=== PATIENT | female | born 1940 | race Caucasian/White ===

== ENCOUNTER 2017-12-08 09:32 | Day surgery (SDC) | payer MEDICARE, OTHER ==
[~2017-12-08] VITALS: Ht 167.6 cm; Wt 64.3 kg
[2017-12-08] MEDS ORDERED: GABA300 PO (10:08)
[2017-12-08] MEDS ORDERED: ATEN50 PO (10:08)
[2017-12-08] MEDS ORDERED: TRAZ50 PO (10:10)
[2017-12-08] MEDS ORDERED: Crestor40 MG PO (10:10)
== END 2017-12-08 12:10 | disposition home or self-care (01) ==
LOC: ORSCSDS 09:32
PROVIDERS: Student in an Organized Health Care Education/Training Program
PROC: 0DB58ZX Excision of Esophagus, Via Natural or Artificial Opening Endoscopic, Diagnostic (ICD-10-PCS; principal; 2017-12-08 10:45)
PROC: 0D758ZZ Dilation of Esophagus, Via Natural or Artificial Opening Endoscopic (ICD-10-PCS; principal; 2017-12-08 10:45)
DX: R13.10 Dysphagia, unspecified (principal); K22.2 Esophageal obstruction; I10 Essential (primary) hypertension; E03.9 Hypothyroidism, unspecified; Z87.891 Personal history of nicotine dependence; K44.9 Diaphragmatic hernia without obstruction or gangrene; Z79.899 Other long term (current) drug therapy
CPT/HCPCS: C1726

== ENCOUNTER → 2019-02-03 | Outpatient (CLI) | payer MEDICARE, OTHER ==
[~2019-02-03] MED LIST: ACET500 PO; ATEN50 PO; Crestor40 MG PO; FAMO20 PO; GABA300 PO; LEVSOD75 PO; OMEPPI 40 MG-11 EACH PO; TRAZ50 PO
[2019-02-06 06:19] LABS: Stool Occult Bld Immuno 1 Negative (NEGATIVE)
== END | disposition home or self-care (01) ==
LOC: LAB SHORT 13:00 → LAB 13:00
PROVIDERS: Family Medicine
DX: Z12.11 Encounter for screening for malignant neoplasm of colon (principal)
CPT/HCPCS: G0328

== ENCOUNTER → 2020-09-29 | Outpatient (CLI) | payer MEDICARE, OTHER ==
[2020-09-29 18:08] LABS: BASOPHILS ABSOLUTE AUTO 0.06 K/mm3 (0.00-0.23); BASOPHILS PERCENT AUTO 1 % (0-2); EOSINOPHILS PERCENT AUTO 1 % (0-6); Hematocrit 34.8 % (33.0-51.0); Hemoglobin 11.2 g/dL (11.5-16.0); IMMATURE GRAN ABSOLUTE AUTO 0.03 K/mm3 (0.00-0.10); IMMATURE GRAN PERCENT AUTO 0 % (0-1); LYMPHOCYTES ABSOLUTE AUTO 0.49 K/mm3 (0.84-5.20); LYMPHOCYTES PERCENT AUTO 6 % (21-46); MONOCYTES ABSOLUTE AUTO 0.63 K/mm3 (0.16-1.47); MONOCYTES PERCENT AUTO 7 % (4-13); Mean Corpuscular HGB 30.8 pg (26.0-34.0); Mean Corpuscular HGB Conc 32.2 g/dL (31.5-36.5); Mean Corpuscular Volume 96 fL (80-100); Mean Platelet Volume 10.6 fL (9.1-12.4); NEUTROPHILS ABSOLUTE AUTO 7.23 K/mm3 (1.96-9.15); NEUTROPHILS PERCENT AUTO 85 % (41-73); Platelet Count 197 K/mm3 (150-400); RDW Coefficient Variation 13.5 % (11.7-14.2); RDW Standard Deviation 47.7 fL (35.1-46.3); Red Blood Cell Count 3.64 M/mm3 (3.80-5.20); White Blood Cell Count 8.54 K/mm3 (4.00-11.30)
[2020-09-29 18:20] LABS: Albumin, Blood 3.6 g/dL (3.4-5.0); Albumin/Globulin Ratio 0.9 (0.8-1.8); Bilirubin, Total 0.4 mg/dL (0.1-1.0); Bun/Creatinine Ratio 16.6 (12.0-20.0); Calcium, Blood 9.4 mg/dL (8.5-10.1); Creatinine, Blood 1.45 mg/dL (0.40-1.00); Globulin, Blood 4.2 g/dL (2.2-4.0); Potassium, Blood 4.5 mmol/L (3.5-5.5); Total Protein, Blood 7.8 g/dL (6.4-8.2)
== END | disposition home or self-care (01) ==
LOC: LAB SHORT 18:04 → LAB 18:04
PROVIDERS: Chiropractor
DX: R50.9 Fever, unspecified (principal); R30.9 Painful micturition, unspecified
CPT/HCPCS: 80053; 85025; 87077; 87086; 87186

== ENCOUNTER → 2020-09-30 | Outpatient (CLI) | payer MEDICARE, OTHER ==
[2020-09-30 11:25] LABS: Bun/Creatinine Ratio 17.2 (12.0-20.0); Calcium, Blood 9.1 mg/dL (8.5-10.1); Creatinine, Blood 1.28 mg/dL (0.40-1.00); Potassium, Blood 4.3 mmol/L (3.5-5.5)
== END | disposition home or self-care (01) ==
LOC: LAB SHORT 11:15 → LAB 11:15
PROVIDERS: Chiropractor
DX: N39.0 Urinary tract infection, site not specified (principal); R30.9 Painful micturition, unspecified
CPT/HCPCS: 80048

== ENCOUNTER → 2020-10-07 | Outpatient (CLI) | payer MEDICARE, OTHER | END | disposition home or self-care (01) | LOC: LAB SHORT 09:40 → LAB 09:40 | DX: N12 Tubulo-interstitial nephritis, not specified as acute or chronic (principal) | CPT/HCPCS: 87086 ==

== ENCOUNTER 2021-05-26 23:51 | Emergency (ER) | payer OTHER ==
[~2021-05-26] VITALS: Ht 170.2 cm; Wt 59.0 kg
[2021-05-27 00:15] LABS: BASOPHILS ABSOLUTE AUTO 0.03 K/mm3 (0.00-0.23); BASOPHILS PERCENT AUTO 0 % (0-2); EOSINOPHILS ABSOLUTE AUTO 0.07 K/mm3 (0.00-0.68); EOSINOPHILS PERCENT AUTO 1 % (0-6); Hematocrit 34.6 % (33.0-51.0); Hemoglobin 11.2 g/dL (11.5-16.0); IMMATURE GRAN ABSOLUTE AUTO 0.04 K/mm3 (0.00-0.10); IMMATURE GRAN PERCENT AUTO 0 % (0-1); LYMPHOCYTES ABSOLUTE AUTO 1.14 K/mm3 (0.84-5.20); LYMPHOCYTES PERCENT AUTO 12 % (21-46); MONOCYTES ABSOLUTE AUTO 1.23 K/mm3 (0.16-1.47); MONOCYTES PERCENT AUTO 13 % (4-13); Mean Corpuscular HGB 30.4 pg (26.0-34.0); Mean Corpuscular HGB Conc 32.4 g/dL (31.5-36.5); Mean Corpuscular Volume 94 fL (80-100); Mean Platelet Volume 10.3 fL (9.1-12.4); NEUTROPHILS ABSOLUTE AUTO 7.12 K/mm3 (1.96-9.15); NEUTROPHILS PERCENT AUTO 74 % (41-73); Platelet Count 215 K/mm3 (150-400); RDW Coefficient Variation 13.7 % (11.7-14.2); RDW Standard Deviation 46.7 fL (35.1-46.3); Red Blood Cell Count 3.69 M/mm3 (3.80-5.20); White Blood Cell Count 9.63 K/mm3 (4.00-11.30)
[2021-05-27 00:20] LABS: Bilirubin, Urine Neg (Neg); Blood, Urine 2+ (Neg); Glucose Qualitative, Urine Neg (Neg); Ketones, Urine Neg (Neg); Leukocyte Esterase, Urine 3+ (Neg); Nitrite, Urine Pos (Neg); Protein, Urine 2+ (Neg); Source, Urine Straight Cath; Urobilinogen, Urine NORM (Normal)
[2021-05-27 00:27] LABS: Appearance, Urine Hazy (Clear); Color, Urine Yellow (P-Yellow)
[2021-05-27 00:28] LABS: Bacteria Many /hpf; Squamous Epithelial Cells Not Seen /hpf (Few); White Blood Cells, Urine TNTC /hpf (0-5)
[2021-05-27 00:32] LABS: Albumin, Blood 3.4 g/dL (3.4-5.0); Albumin/Globulin Ratio 0.8 (0.8-1.8); Bilirubin, Total 0.3 mg/dL (0.1-1.0); Bun/Creatinine Ratio 12.8 (12.0-20.0); Creatinine, Blood 1.33 mg/dL (0.40-1.00); Total Protein, Blood 7.4 g/dL (6.4-8.2)
== END 2021-05-27 04:31 | disposition home or self-care (01) ==
LOC: ER 23:51
PROVIDERS: Emergency Medicine
DX: N39.0 Urinary tract infection, site not specified (principal); Z85.818 Personal history of malignant neoplasm of other sites of lip, oral cavity, and pharynx; Z79.899 Other long term (current) drug therapy; Z88.5 Allergy status to narcotic agent; Z88.8 Allergy status to other drugs, medicaments and biological substances; Z91.040 Latex allergy status; Z91.011 Allergy to milk products
CPT/HCPCS: 36415; 80053; 81001; 83605; 85025; 87040; 87077; 87086; 87186; 99283; J0696; J7030; P9612

== ENCOUNTER 2023-10-01 06:33 | Emergency (ER) | payer OTHER ==
[~2023-10-01] VITALS: Ht 170.2 cm; Wt 65.8 kg
[2023-10-01] MEDS ORDERED: CELEXA10 MG PO (06:57)
[2023-10-01] MEDS ORDERED: ROSUVASTATIN CA20 MG PO (06:57)
[2023-10-01] MEDS ORDERED: EUTHYROX50 MC1 PO (06:58)
[2023-10-01] MEDS ORDERED: Ketorolac Tromethamine 30mg Vial IM ONE (07:00)
[2023-10-01 08:47] VITALS: BP 160/86
== END 2023-10-01 08:48 | disposition home or self-care (01) ==
LOC: ER 06:33
DX: S43.401A Unspecified sprain of right shoulder joint, initial encounter (principal); X50.0XXA Overexertion from strenuous movement or load, initial encounter; Y92.007 Garden or yard of unspecified non-institutional (private) residence as the place of occurrence of the external cause; Z79.899 Other long term (current) drug therapy; Z88.5 Allergy status to narcotic agent; Z91.040 Latex allergy status; Z88.8 Allergy status to other drugs, medicaments and biological substances
CPT/HCPCS: 73030; 96372; 99283-25; J1885

== ENCOUNTER 2024-05-12 09:31 | Emergency (ER) | payer OTHER ==
[~2024-05-12] VITALS: Ht 167.6 cm; Wt 63.5 kg
[~2024-05-12 09:31] MED LIST changes: +CELEXA10 MG PO; +EUTHYROX50 MC1 PO; +ROSUVASTATIN CA20 MG PO
[2024-05-12] MEDS ORDERED: NS 1,000 ML IV SCH (10:40)
[2024-05-12 11:32] LABS: Source, Urine Clean Catch
[2024-05-12 11:40] LABS: BASOPHILS PERCENT AUTO 1 % (0-2); EOSINOPHILS PERCENT AUTO 3 % (0-6); Hematocrit 36.3 % (33.0-51.0); IMMATURE GRAN ABSOLUTE AUTO 0.03 K/mm3 (0.00-0.10); IMMATURE GRAN PERCENT AUTO 0 % (0-1); LYMPHOCYTES ABSOLUTE AUTO 1.85 K/mm3 (0.84-5.20); LYMPHOCYTES PERCENT AUTO 15 % (21-46); MONOCYTES ABSOLUTE AUTO 0.92 K/mm3 (0.16-1.47); MONOCYTES PERCENT AUTO 8 % (4-13); Mean Corpuscular HGB 31.7 pg (26.0-34.0); Mean Corpuscular HGB Conc 33.1 g/dL (31.5-36.5); Mean Corpuscular Volume 96 fL (80-100); Mean Platelet Volume 10.6 fL (9.1-12.4); NEUTROPHILS ABSOLUTE AUTO 8.89 K/mm3 (1.96-9.15); NEUTROPHILS PERCENT AUTO 74 % (41-73); Platelet Count 212 K/mm3 (150-400); RDW Coefficient Variation 14.1 % (11.7-14.2); RDW Standard Deviation 49.9 fL (35.1-46.3); Red Blood Cell Count 3.78 M/mm3 (3.80-5.20); White Blood Cell Count 12.09 K/mm3 (4.00-11.30)
[2024-05-12 11:43] LABS: Appearance, Urine Cloudy (Clear); Bilirubin, Urine Neg (Neg); Blood, Urine 2+ (Neg); Color, Urine Yellow (P-Yellow); Glucose Qualitative, Urine Neg (Neg); Ketones, Urine Neg (Neg); Leukocyte Esterase, Urine 3+ (Neg); Nitrite, Urine Pos (Neg); Protein, Urine 2+ (Neg); Urobilinogen, Urine NORM (Normal)
[2024-05-12 11:51] LABS: White Blood Cells, Urine TNTC /hpf (0-5)
[2024-05-12 11:53] LABS: Bacteria Many /hpf; Squamous Epithelial Cells Few /hpf (Few)
[2024-05-12 11:55] LABS: Albumin, Blood 3.9 g/dL (3.4-5.0); Bilirubin, Total 0.4 mg/dL (0.1-1.0); Bun/Creatinine Ratio 12.8 (12.0-20.0); Calcium, Blood 9.9 mg/dL (8.5-10.1); Creatinine, Blood 1.41 mg/dL (0.40-1.00); Globulin, Blood 3.9 g/dL (2.2-4.0); Potassium, Blood 4.7 mmol/L (3.5-5.5); Total Protein, Blood 7.8 g/dL (6.4-8.2)
[2024-05-12 12:02] LABS: CORONAVIRUS COVID-19 AG Negative (NEGATIVE); INFLUENZA A AG Negative (NEGATIVE); INFLUENZA B AG Negative (NEGATIVE)
[2024-05-12 12:30] VITALS: BP 108/68
[2024-05-12] MEDS ORDERED: CefTRIAXone Sodium 1,000 MG in NS 50 ML IV ONE (13:05)
[2024-05-12] MEDS ORDERED: CEPH500 PO (14:10)
[2024-05-15] MEDS ORDERED: NITR100CA PO (18:38)
== END 2024-05-12 14:28 | disposition home or self-care (01) ==
LOC: ER 09:31
PROVIDERS: Student in an Organized Health Care Education/Training Program
DX: N39.0 Urinary tract infection, site not specified (principal); I10 Essential (primary) hypertension; K21.9 Gastro-esophageal reflux disease without esophagitis; E03.9 Hypothyroidism, unspecified; Z87.891 Personal history of nicotine dependence; Z79.899 Other long term (current) drug therapy; Z88.5 Allergy status to narcotic agent; Z91.040 Latex allergy status; Z88.8 Allergy status to other drugs, medicaments and biological substances
CPT/HCPCS: 51701; 71046; 80053; 81001; 83605; 85025; 87077; 87086; 87186; 87428-QW; 93005; 93010; 96361-59; 96365-59; 99284-25; J0696; J7030

== ENCOUNTER → 2024-05-24 | Outpatient (CLI) | payer OTHER ==
[~2024-05-24] MED LIST changes: +CEPH500 PO; +NITR100CA PO
== END ==
LOC: LAB SHORT 12:52 → LAB 12:52
DX: N39.0 Urinary tract infection, site not specified (principal)
CPT/HCPCS: 87086

== ENCOUNTER 2024-07-08 03:14 | Inpatient (IN) | payer OTHER ==
[~2024-07-08] VITALS: Ht 170.2 cm; Wt 67.2 kg
[2024-07-08] MEDS ORDERED: Lactated Ringer's 1,000 ML IV ONE ×2 (03:50→06:40)
[2024-07-08 03:58] LABS: BASOPHILS ABSOLUTE AUTO 0.06 K/mm3 (0.00-0.23); BASOPHILS PERCENT AUTO 1 % (0-2); EOSINOPHILS ABSOLUTE AUTO 0.07 K/mm3 (0.00-0.68); EOSINOPHILS PERCENT AUTO 1 % (0-6); Hematocrit 36.5 % (33.0-51.0); IMMATURE GRAN ABSOLUTE AUTO 0.05 K/mm3 (0.00-0.10); IMMATURE GRAN PERCENT AUTO 0 % (0-1); LYMPHOCYTES PERCENT AUTO 6 % (21-46); MONOCYTES ABSOLUTE AUTO 0.67 K/mm3 (0.16-1.47); MONOCYTES PERCENT AUTO 6 % (4-13); Mean Corpuscular HGB 31.6 pg (26.0-34.0); Mean Corpuscular HGB Conc 32.9 g/dL (31.5-36.5); Mean Corpuscular Volume 96 fL (80-100); Mean Platelet Volume 10.6 fL (9.1-12.4); NEUTROPHILS ABSOLUTE AUTO 9.67 K/mm3 (1.96-9.15); NEUTROPHILS PERCENT AUTO 86 % (41-73); Platelet Count 216 K/mm3 (150-400); RDW Coefficient Variation 14.2 % (11.7-14.2); RDW Standard Deviation 50.3 fL (35.1-46.3); White Blood Cell Count 11.22 K/mm3 (4.00-11.30)
[2024-07-08 04:13] LABS: Albumin, Blood 3.9 g/dL (3.4-5.0); Albumin/Globulin Ratio 0.9 (0.8-1.8); Bilirubin, Total 0.5 mg/dL (0.1-1.0); Bun/Creatinine Ratio 14.9 (12.0-20.0); Calcium, Blood 9.4 mg/dL (8.5-10.1); Creatinine, Blood 1.34 mg/dL (0.40-1.00); Globulin, Blood 4.2 g/dL (2.2-4.0); Potassium, Blood 4.2 mmol/L (3.5-5.5); Total Protein, Blood 8.1 g/dL (6.4-8.2)
[2024-07-08 07:04] LABS: Source, Urine Clean Catch
[2024-07-08 07:12] LABS: Appearance, Urine Hazy (Clear); Bilirubin, Urine Neg (Neg); Blood, Urine 2+ (Neg); Color, Urine Yellow (P-Yellow); Glucose Qualitative, Urine Neg (Neg); Ketones, Urine Neg (Neg); Leukocyte Esterase, Urine 3+ (Neg); Nitrite, Urine Neg (Neg); Protein, Urine 3+ (Neg); Specific Gravity, Urine 1.005 (1.003-1.022); Urobilinogen, Urine NORM (Normal)
[2024-07-08] MEDS ORDERED: CefTRIAXone Sodium 1,000 MG in NS 100 ML IV ONE (07:45)
[2024-07-08 08:04] LABS: White Blood Cells, Urine 50-100 /hpf (0-5)
[2024-07-08 08:05] LABS: Red Blood Cells, Urine 0-2 /hpf (0-2)
[2024-07-08 08:07] LABS: Amorphous Mod (0-Heavy); Bacteria Mod /hpf; Squamous Epithelial Cells Rare /hpf (Few)
[2024-07-08] MEDS ORDERED: Acetaminophen 500 MG Tab PO ONE (09:10)
[2024-07-08] MEDS ORDERED: Acetaminophen 500 MG Tab PO PRN ×2 (09:30→14:25)
[2024-07-08] MEDS ORDERED: FLU VACC TS2024-25(6MOS UP)/PF 45 MCG/0.5 ML SYRINGE IM SCH (09:35)
[2024-07-08] MEDS ORDERED: Prochlorperazine Edisylate 10 mg Vial IV PRN (09:35)
[2024-07-08] MEDS ORDERED: NS 1,000 ML IV SCH (09:35)
[2024-07-08 11:35] VITALS: BP 122/74
[2024-07-08] MEDS ORDERED: Ampicillin Sod/Sulbactam Sod 1.5 GM in NS 100 ML IV SCH (12:00)
[2024-07-08] MEDS ORDERED: Gabapentin 300 MG Cap PO SCH (14:00)
[2024-07-08 15:09] VITALS: BP 117/70
--- NOTE | 2024-07-08 18:14 | NUR ---
ADMISSION/SHIFT SUMMARY: PATIENT ARRIVES TO ROOM VIA GURNEY AT 1130 FROM ER FOR DX'S OF PYELONEPHRITIS. PATIENT TRANSFERRED TO BED c 1 ASSIST. ADMISSION, MEDRIC AND SKIN ASSESSMENT c 2 RN'S VERIFIED COMPLETED. PATIENT ORIENTATED TO ROOM AND CALL SYSTEM. PATIENT A/OX4, CALM, PLEASANT AND COOPERATIVE c CARE. PATIENT REPORTS PAIN TO BACK/FOOT AND UZAIR AREA. MEDICATED FOR PAIN PER EMAR c MOD EFFECT. PATIENT RECEIVED IV ABX/SCHEDULED MEDS PER EMAR. PATIENT CONTINENT OF BLADDER, USES BSC c SBA. PATIENT HAS PIV TO R WRIST INFUSING NS AT 100 MLS/HR. VITAL SIGNS REVIEWED. BED ALARM ON FOR SAFETY. CALL LIGHT IN REACH.
[2024-07-08 19:22] VITALS: BP 125/61
[2024-07-08] MEDS ORDERED: Sennosides 8.6 MG Tab PO SCH (21:00)
[2024-07-08] MEDS ORDERED: Lactobacil 2-S.Thermo-Bifido 1 1 Cap PO SCH (21:00)
[2024-07-09 04:40] VITALS: BP 142/77
[2024-07-09 05:24] LABS: BASOPHILS ABSOLUTE AUTO 0.07 K/mm3 (0.00-0.23); BASOPHILS PERCENT AUTO 1 % (0-2); EOSINOPHILS ABSOLUTE AUTO 0.22 K/mm3 (0.00-0.68); EOSINOPHILS PERCENT AUTO 2 % (0-6); Hematocrit 31.8 % (33.0-51.0); Hemoglobin 9.9 g/dL (11.5-16.0); IMMATURE GRAN ABSOLUTE AUTO 0.05 K/mm3 (0.00-0.10); IMMATURE GRAN PERCENT AUTO 0 % (0-1); LYMPHOCYTES PERCENT AUTO 15 % (21-46); MONOCYTES ABSOLUTE AUTO 1.27 K/mm3 (0.16-1.47); MONOCYTES PERCENT AUTO 11 % (4-13); Mean Corpuscular HGB 30.7 pg (26.0-34.0); Mean Corpuscular HGB Conc 31.1 g/dL (31.5-36.5); Mean Corpuscular Volume 99 fL (80-100); Mean Platelet Volume 10.5 fL (9.1-12.4); NEUTROPHILS ABSOLUTE AUTO 8.42 K/mm3 (1.96-9.15); NEUTROPHILS PERCENT AUTO 72 % (41-73); Platelet Count 190 K/mm3 (150-400); RDW Coefficient Variation 14.6 % (11.7-14.2); RDW Standard Deviation 53.1 fL (35.1-46.3); Red Blood Cell Count 3.23 M/mm3 (3.80-5.20); White Blood Cell Count 11.73 K/mm3 (4.00-11.30)
[2024-07-09 05:56] LABS: Bun/Creatinine Ratio 14.9 (12.0-20.0); Calcium, Blood 8.7 mg/dL (8.5-10.1); Creatinine, Blood 1.21 mg/dL (0.40-1.00); Potassium, Blood 4.2 mmol/L (3.5-5.5)
[2024-07-09] MEDS ORDERED: Levothyroxine Sodium 0.05 MG Tab PO SCH (06:00)
--- NOTE | 2024-07-09 06:00 | NUR ---
SHIFT SUMMARY: Pt admitted for pyelonephristis and is a limited code. Is alert and able to make needs knows. ADLs have been SBA. expressed some discomfort with urination but denied any other pain.
[2024-07-09 07:47] VITALS: BP 146/78
[2024-07-09] MEDS ORDERED: Citalopram Hydrobromide 10 MG TAB PO SCH (09:00)
[2024-07-09] MEDS ORDERED: Enoxaparin 40 MG/0.4 ML SYR SC SCH (09:00)
[2024-07-09] MEDS ORDERED: Famotidine 20 MG Tab PO SCH (09:00)
[2024-07-09] MEDS ORDERED: Atenolol 50 MG Tab PO SCH (09:00)
[2024-07-09 15:33] VITALS: BP 139/81
[2024-07-09 18:03] VITALS: BP 178/96
[2024-07-09] MEDS ORDERED: Ipratropium/Albuterol SulF 2.5-0.5MG/3 ML Amp INH PRN (18:10)
--- NOTE | 2024-07-09 18:11 | NUR ---
SUDDEN DIFFICULTY BREATHING PT SAT UP AT APPROX 1600 STATING SHE WAS HAVING SOME SOB, PT DENIED CHEST PAIN. UPON VITAL CHECK, HER SATS WERE AT 89% ON RA. PT PLACED ON 2L O2 VIA NC. SATS IMPROVED TO 95%. PT BOOSTED IN BED. LS DIM IN THE BASES WITH WHEEZES IN THE UPPER BASES. DR. HANNON NOTIFIED OF EVENTS. NS STOPPED, BNP ORDERED, CHEST XRAY ORDERED, AND DUONEB ORDERED TO HELP WITH BREATHING.
--- NOTE | 2024-07-09 18:18 | NUR ---
SHIFT SUMMARY SEE PREVIOUS NOT ON SOB. PRIOR TO THIS EVENT, PT WAS PLEASANT & COOPERATIVE. UP TO BSC WITH SUPERVISION. PT IS TRANSFERING WELL, BUT STATES SHE IS SHAKIER THAN NORMAL. MEDICATED FOR CHRONIC BACK ONCE TODAY, SEE EMAR. K PAD ALSO SET UP TO ASSIST WITH BACK PAIN WITH GOOD RELIEF. PT HAD SLIGHT TEMP OF 100.1 THIS AFTERNOON, SO HEATING PAD WAS STOPPED FOR NOW. NO OTHER ACUTE CHANGES IN ASSESSMENT AT THIS TIME. VS REVIEWED. CALL LIGHT IN REACH. RT NOTIFIED THAT BREATHING TREATMENT IS NEEDED. PT STATES SHE IS "FEELING BETTER" AND IS NOW SATING AT 98% ON 2L O2 VIA NC. CXR COMPLETED. CALL LIGHT IN REACH.
[2024-07-09 19:33] VITALS: BP 171/88
[2024-07-09] MEDS ORDERED: Rosuvastatin Calcium 10 MG Tab PO SCH (21:00)
--- NOTE | 2024-07-09 23:53 | NUR ---
BNP 687. MADE AWARE AND CONTINUOUS NS INFUSION DC'D AT THIS TIME. ALSO ALERTED TO ELEVATED BP BUT NO NEW ORDERS RECEIVED AT THIS TIME.
[2024-07-10 04:16] VITALS: BP 164/85
[2024-07-10 06:50] LABS: Hemoglobin 10.6 g/dL (11.5-16.0); Mean Corpuscular HGB 31.2 pg (26.0-34.0); Mean Corpuscular HGB Conc 32.1 g/dL (31.5-36.5); Mean Corpuscular Volume 97 fL (80-100); Mean Platelet Volume 10.7 fL (9.1-12.4); Platelet Count 201 K/mm3 (150-400); RDW Coefficient Variation 14.3 % (11.7-14.2); White Blood Cell Count 9.58 K/mm3 (4.00-11.30)
[2024-07-10 07:09] LABS: Bun/Creatinine Ratio 12.8 (12.0-20.0); Creatinine, Blood 1.09 mg/dL (0.40-1.00); Potassium, Blood 3.7 mmol/L (3.5-5.5)
[2024-07-10 07:40] VITALS: BP 165/91
--- NOTE | 2024-07-10 07:41 | NUR ---
SUMMARY: PT A/OX4, CALLS APPROPRIATELY TO SPECIFY NEEDS AND IS PLEASANT AND COOPERATIVE W/CARE. SHE'S UP AD [place]BER[place] TO BSC AND AWARE OF LIMITATIONS. TYLENOL RECEIVED PRN FOR TOLERABLE RELIEF OF BACK, NECK AND R.ARM PAIN AND PT USES KPAD PRN. BNP WAS 687 W/IVF DC'D AND IV SL'D BETWEEN ABX. SHE INTITIALLY C/O OF SOB AND WAS WEARING 2L O2 VIA NC BUT THIS IMPROVED AND PT IS NOW BACK ON RA W/SPO2 WNL W/O NO S/S RESP DISTRESS. NO ACUTE CHANGES, VSS/AFEBRILE. REPORT PROVIDED TO DAY RN.
[2024-07-10] MEDS ORDERED: Furosemide 10 MG/ML 4ML Vial IV SCH (09:00)
[2024-07-10] MEDS ORDERED: HydrALAZINE HCl 20 MG / ML 1ML Vial IV PRN (14:00)
[2024-07-10 15:18] VITALS: BP 148/93
--- NOTE | 2024-07-10 18:42 | NUR ---
SHIFT SUMMARY PT GIVEN LASIX TODAY, PT VOIDING OFTEN IN THE BSC. CLEAR YELLOW IN COLOR. ECHO COMPLETED THIS SHIFT. PT STATES HE BREATHING IS MUCH BETTER THIS AFTERNOON. NO FURTHER POSITIONAL DYSPNEA WHEN LYING FLAT. DIET ORDER EDITED TO REFLECT VEGITARIAN DIET. MEDICATED FOR PAIN ONCE THIS SHIFT. NO OTHER ACUTE CHANGES IN ASSESSMENT AT THIS TIME. VS REVIEWED. CALL LIGHT IN REACH. DENIES OTHER NEEDS AT THIS TIME.
[2024-07-10 20:09] VITALS: BP 165/76
--- NOTE | 2024-07-11 04:38 | NUR ---
SHIFT SUMMARY: PT AOX4 SBA TO BSC, CALLS APPROPRIATELY. PT TOLERATING MEDICATIONS WELL, NO ACUTE EVENTS OVERNIGHT. STATES TO BE FEELING BETTER, NO RESP DISTRESS NOTED AND PT SATTING WELL ON RA. PT IS SLEEPING IN BED, BED IN LOWEST POSITION, CALL LIGHT IN REACH. CONTINUING CARE.
[2024-07-11 05:15] VITALS: BP 161/84
[2024-07-11 05:47] LABS: Bun/Creatinine Ratio 12.2 (12.0-20.0); Calcium, Blood 8.6 mg/dL (8.5-10.1); Creatinine, Blood 1.15 mg/dL (0.40-1.00); Magnesium, Blood 1.9 mg/dL (1.6-2.4); Potassium, Blood 3.1 mmol/L (3.5-5.5)
[2024-07-11 07:32] VITALS: BP 143/77
[2024-07-11] MEDS ORDERED: Potassium Chloride 20 MEQ TabCR PO ONE (07:35)
[2024-07-11] MEDS ORDERED: Losartan Potassium 25 MG Tab PO SCH (09:00)
[2024-07-11] MEDS ORDERED: LACT PO (13:39)
[2024-07-11] MEDS ORDERED: FURO20 PO (13:40)
[2024-07-11] MEDS ORDERED: POTA20LUD PO (13:41)
[2024-07-11] MEDS ORDERED: LOSA25 PO (13:42)
[2024-07-11] MEDS ORDERED: CEFU500T30 PO (13:43)
--- NOTE | 2024-07-11 14:30 | NUR ---
SHIFT SUMMARY AND DISCHARGE PATIENT ALERT AND INTERACTIVE. PATIENT INDEPENDENT IN THE ROOM PATIENT EAGER TO GO HOME. EDUCATION PROVIDED RELATED TO UTI'S. DISCHARGE INSTRUCTIONS GIVEN. IV REMOVED. BELONGINS RETURNED TO PATIENT. PATIENT TRANSPORTED OUT VIA WHEELCHAIR BY FURNITURE ASSEMBLER. ROOM CHECK DONE BEFORE DEPARTURE.
== END 2024-07-11 14:18 | disposition home or self-care (01) | DRG 871 ==
LOC: ER 03:14 → MEDS 09:28 → ERHOLD 09:28 → MEDS 11:29 → ENPENDDIS 07-11 11:39 → MEDS 07-11 14:18
PROVIDERS: Internal Medicine; Student in an Organized Health Care Education/Training Program; ADMIT Internal Medicine
DX: A41.51 Sepsis due to Escherichia coli [E. coli] (principal); J96.01 Acute respiratory failure with hypoxia; N10 Acute pyelonephritis; I13.0 Hypertensive heart and chronic kidney disease with heart failure and stage 1 through stage 4 chronic kidney disease, or unspecified chronic kidney disease; I50.30 Unspecified diastolic (congestive) heart failure; R65.20 Severe sepsis without septic shock; K21.9 Gastro-esophageal reflux disease without esophagitis; E03.9 Hypothyroidism, unspecified; R53.1 Weakness; I11.0 Hypertensive heart disease with heart failure; N18.30 Chronic kidney disease, stage 3 unspecified; F32.A Depression, unspecified; F41.9 Anxiety disorder, unspecified; M79.7 Fibromyalgia; Z88.5 Allergy status to narcotic agent; Z91.040 Latex allergy status; Z88.8 Allergy status to other drugs, medicaments and biological substances; Z79.890 Hormone replacement therapy; Z79.899 Other long term (current) drug therapy; Z85.818 Personal history of malignant neoplasm of other sites of lip, oral cavity, and pharynx; Z98.890 Other specified postprocedural states; Z87.19 Personal history of other diseases of the digestive system; Z87.891 Personal history of nicotine dependence; W01.198A Fall on same level from slipping, tripping and stumbling with subsequent striking against other object, initial encounter
CPT/HCPCS: 36415; 70450; 71045; 74177; 80048; 80053; 81001; 83605; 83735; 83880; 84443; 84484; 85025; 85027; 87040; 87077; 87086; 87186; 93005; 93010; 93306; 94760; 96361; 96365-59; 99285-25; A9270; J0295; J0696; J1650; J1940; J7030; J7120; Q9967

== ENCOUNTER → 2024-07-23 | Outpatient (CLI) | payer OTHER ==
[~2024-07-23] MED LIST changes: +CEFU500T30 PO; +FURO20 PO; +LACT PO; +LOSA25 PO; +POTA20LUD PO
== END ==
LOC: LAB 11:35 → LAB SHORT 11:35
DX: N39.0 Urinary tract infection, site not specified (principal)
CPT/HCPCS: 87077; 87086; 87186

== ENCOUNTER → 2024-08-02 | Outpatient (CLI) | payer OTHER | END | disposition home or self-care (01) | LOC: LAB 15:19 → LAB SHORT 15:19 | DX: R30.0 Dysuria (principal) | CPT/HCPCS: 87086 ==

== ENCOUNTER → 2024-09-12 | Outpatient (CLI) | payer OTHER | LOC: LAB 07:57 → LAB SHORT 07:57 | DX: D48.5 Neoplasm of uncertain behavior of skin (principal) | CPT/HCPCS: 88305 ==

== ENCOUNTER → 2024-10-02 | Outpatient (CLI) | payer OTHER | LOC: LAB 07:59 → LAB SHORT 07:59 | DX: L57.0 Actinic keratosis (principal); L57.8 Other skin changes due to chronic exposure to nonionizing radiation | CPT/HCPCS: 88305 ==